=== PATIENT | female | born 1965 | race Caucasian/White ===

== ENCOUNTER 2018-02-23 08:33 | Day surgery (SDC) | payer BC ==
[~2018-02-23 08:33] MED LIST: ACETAMINOPHEN 1,000 MG/100 ML BTL IV ONE; CLINDAMYCIN PHOS/D5W 900MG 900 MG/50 ML BAG IVPB ONE
[2018-02-23] MEDS ORDERED: SUCCINYLCHOLINE 20 MG/ML 10ML IVP ONE (08:34)
[2018-02-23] MEDS ORDERED: LIDOCAINE 2% MDV (20MG/ML) 20ML VIAL IV ONE (08:34)
[2018-02-23] MEDS ORDERED: EPHEDRINE SULFATE 50 MG/ML ML IV ONE (08:34)
[2018-02-23] MEDS ORDERED: SEVOFLURANE 250 ML INH ONE (08:34)
[2018-02-23] MEDS ORDERED: MIDAZOLAM HCL 2MG/2ML VIAL IV ONE (08:34)
[2018-02-23] MEDS ORDERED: BUPIVACAINE 0.5% W/EPI MPF 30 ML VIAL IVP ONE ×2 (08:34)
[2018-02-23] MEDS ORDERED: BUPIVACAINE LIPOSOME/PF 133MG/10ML VIAL IV ONE (08:34)
[2018-02-23] MEDS ORDERED: PROPOFOL 10 MG/ML VIAL IV ONE (08:34)
[2018-02-23] MEDS ORDERED: ONDANSETRON HCL IV 4 MG/2 ML VIAL IVP ONE (08:34)
[2018-02-23] MEDS ORDERED: DEXAMETHASONE 4 MG/ML 1ML VIAL IVP ONE (08:34)
[2018-02-23] MEDS ORDERED: 0.9 % SODIUM CHLORIDE 10 ML VIAL IVP ONE (08:34)
--- NOTE | 2018-02-28 10:00 | Operative Note ---
DATE OF SURGERY: 02/23/2018 Surgeon: Kelvin Mary MD PREOPERATIVE DIAGNOSIS: Displaced fracture of the right clavicle. POSTOPERATIVE DIAGNOSIS: Displaced fracture of the right clavicle. OPERATION: Open reduction internal fixation right clavicle with [employer] EVOS superior distal clavicle 5-hole plate with Allograft bone grafting. Anesthesia: General. PREPARATION: Chloraprep. Individual considerations: This is not a standard procedure. This fracture was highly comminuted, in multiple pieces, which required extra exposure to try and approximate both ends and required bone grafting to get this to heal. PROCEDURE: The patient was taken to the operating room and placed supine on the operating room table. She had a successful induction with general anesthetic. She was then placed in a semi-seated, about 30 degrees beach chair position. Her right shoulder area and clavicle were prepped and draped in the usual fashion. The patient had an incision along the length of the clavicle, directly over the top of it. The skin was infiltrated with 0.5% Marcaine with epinephrine prior. Sharp dissection carried down through skin and subcutaneous tissue, which was minimal because I was directly over the bone. Once I got through, there was an obvious hematoma at the fracture site. Small veins were coagulated with the Bovie. There were 2 large pieces, it was roughly mid shaft, maybe slightly lateral to mid shaft. There was the medial piece, the lateral piece, and then there was at least 3 to 4 comminuted pieces, some pieces with soft tissue attachments, especially inferiorly and posterior, more anteriorly, there were 3 of these that basically fell out of the wound. They were smaller. After cleaning up the ends of soft tissue and clot and releasing them at both ends, I was able to approximate them as best I could by holding them together with lobster clamps on either side. I used an EVOS plate in order to do this. I could not get it anatomic because there was really no way to identify what the anatomy was because of the comminution. I just brought the ends close together and touching and then secured the plate on top with lobster clamps. I filled the lateral screws with 6 2.7 locking screws and I was able to get 4 medial screws which were the 3.5 locking screws. This gave excellent stable osteo symphysis. I then, after irrigation, got 5 mL of bone graft putty with both conductive and inductive properties and filled the gaps in the areas around the plate and around the bone on either side for bridging. I then closed the fascia on top of the bone with running #1 Vicryl, the subcutaneous was closed with 2-0 Vicryl, the skin was closed with running 3-0 Quill and a sterile dressing was applied. The patient tolerated the procedure well. The needle and sponge counts were correct. Estimated blood loss was minimal. She was taken back to the recovery room in good condition. There were no complications. M[place]
== END 2018-02-23 14:18 | disposition home or self-care (01) ==
LOC: SUR 08:33
PROVIDERS: ATTEND Orthopaedic Surgery
DX: M25.511 Pain in right shoulder (principal); S42.021S Displaced fracture of shaft of right clavicle, sequela; I10 Essential (primary) hypertension; I49.8 Other specified cardiac arrhythmias; K21.9 Gastro-esophageal reflux disease without esophagitis
CPT/HCPCS: 23515; 00450; 64415; J2405; J3490; C9290; 76942; C1713; J0330